=== PATIENT | female | born 1935 | race Caucasian/White ===

== ENCOUNTER 2019-01-03 12:12 | Emergency (ER) | payer OTHER ==
[~2019-01-03] VITALS: Ht 162.6 cm; Wt 55.3 kg
[2019-01-03] MEDS ORDERED: LOSARTAN POTAS100 MG PO (12:30)
[2019-01-03 12:41] LABS: EOSINOPHILS 3.7 % (0.0-3.0); HEMATOCRIT 34.7 % (37.0-47.0); HEMOGLOBIN 11.6 gm/dL (12.0-15.0); LYMPHOCYTES 16.7 % (24.0-44.0); MCH 30.7 pg (26.0-34.0); MCHC 33.4 g/dL (28.0-37.0); MONOCYTES 5.1 % (1.0-8.0); PLATELET COUNT 375 thou/uL (150-400); POLYS 73.5 % (36.0-66.0); RBC 3.77 mil/uL (4.20-5.00); RDW 13.9 % (10.5-14.5); WBC 8.2 thou/uL (4.0-11.0)
[2019-01-03 12:55] LABS: ANION GAP 9 mmol/L (7-16); BUN 32 mg/dL (7-18); CALCIUM 9.1 mg/dL (8.5-10.1); CHLORIDE 105 mmol/L (98-107); CO2 27 mmol/L (21-32); CREATININE 1.5 mg/dL (0.6-1.0); GLUCOSE 99 mg/dL (74-106); POTASSIUM 4.3 mmol/L (3.5-5.1); SODIUM 141 mmol/L (136-145)
[2019-01-03 13:04] LABS: ALBUMIN 3.4 g/dL (3.4-5.0); SGOT 33 U/L (15-37); SGPT 71 U/L (30-65); TOTAL BILIRUBIN 0.3 mg/dL (<0.1-1.0); TOTAL PROTEIN 7.3 g/dL (6.4-8.2); TROPONIN-I <0.06 ng/mL (<0.06)
[2019-01-03 14:02] VITALS: BP 114/64
[2019-01-03 17:30] VITALS: BP 93/52
--- NOTE | 2019-01-05 07:52 | EKG ---
[place] [address] [employer] [facility] [place] [address] ELECTROCARDIOGRAM REPORT Name: JAYDEN CAMPUZANO Room #: DEP YARI Rodriguez#: [id number] Admission: 01/03/19 Attend Phys: Discharge: 01/03/19 Date of : 34 Report #: [id number] THIS REPORT FOR: //name// [facility] ED Test Date: 2019-01-03 Test Time: 12:27:41 Pat Name: JAYDEN CAMPUZANO Department: Room: 170 Gender: F Senior Principal: SHERIE : 1935 Requested By: Jerry Esposito Order Number: [id number] MD: Kaveh Lange Measurements Intervals [place] Rate: 135 P: AR: QRS: -18 QRSD: 95 T: 9 QT: 308 QTc: 462 Interpretive Statements Atrial fibrillation Borderline left axis deviation Low voltage, precordial leads Consider anterior infarct No previous ECG available for comparison Electronically Signed On 01-05-2019 7:51:53 CDT by Kaveh Lange [email or web address] <ELECTRONICALLY SIGNED> By: Kaveh Lange MD 01/05/19 0751 1227 1227 MD HUANG Davis
== END 2019-01-03 17:30 | disposition home or self-care (01) ==
LOC: ER 12:12 → EROBS 13:47 → ER 17:30
PROVIDERS: Emergency Medicine
DX: I48.2 Chronic atrial fibrillation (principal); I10 Essential (primary) hypertension; K21.9 Gastro-esophageal reflux disease without esophagitis; E03.9 Hypothyroidism, unspecified; Z88.0 Allergy status to penicillin

== ENCOUNTER 2019-01-12 03:00 | Inpatient (IN) | payer OTHER ==
[2019-01-12] VITALS (16 sets, daily range): BP systolic 81–138; BP diastolic 44–112
[~2019-01-12] VITALS: Ht 152.4 cm; Wt 55.3 kg
--- NOTE | ~2019-01-12 | EMS ---
[facility] [address] [place] [address] EMS Patient Care Report Name: JAYDEN CAMPUZANO Room #: 170-6 ADM IN M.R.#: [id number] Admission: 01/12/19 Attend Phys: Meron Martinez Discharge: Date of : 34 Report #: [id number] THIS REPORT FOR: //name// Report Transmitted: 01/12/2019 06:20 EMS Care Summary [facility] Incident [id number] @ 01/12/2019 02:07 Incident Location [address] [place] [address] Patient JAYDEN CAMPUZANO Female, 83 Years 1935 Patient Address [address] [place] [address] Patient Allergies No known allergies, Chief Complaint Dyspnea Disposition Transported No Lights/[place] Dispatch Reason Breathing Problem Transported To [facility] Narrative Arrived on scene to find pt laying L lateral recumbent on her bed. Upon arrival pt was awake and alert. Pt stated she was washing her hands in the bathroom when she became light headed and fell into a wall and sat on the floor. Pt denied any head or neck pain, and denied any actual LOC. Daughter stated that she called 911 because following that episode the pt was having difficulty breathing stating she was unable to catch her breath. Upon initial examination pt stated her breathing was doing better, but she had abdominal pain and lower back pain that had lasted a few days. Pt ambulated with assistance to the stretcher. Once seated on the stretcher pt was secured via seat belts. Once in [facility] [address] [place] [address] EMS Patient Care Report Name: JAYDEN CAMPUZANO Room #: 170-6 ADM IN .R.#: [id number] Admission: 01/12/19 Attend Phys: Meron Martinez Discharge: Date of : 34 Report #: [id number] the ambulance pt was placed on 15L O2 via NRB due to a reemergence of dyspnea, pt's vitals were assessed (see previous annotations), a 12 lead ECG was captured (aFib with ectopy), a 20 G IV was successfully placed in pt's R forearm (patency ensured via NS, secured), and transport was initiated. Pt was monitored for the duration of transport, prior to arrival at ED O2 was removed from pt due to cessation of dyspnea. Difference in blood pressure readings was unable to be verified as ambient noise made manual interpenetration of BP difficult, and weak radial pulse hindered palp BP. repeated efforts to assess with autocuff resulted in time outs. Upon arrival at destination facility pt was transferred from stretcher to hospital bed via sheet draw, pt care report was given to facility staff, and pt care was turned over. All times are estimations. EMTP [id number]. Initial Vitals @02:24P: 59,SpO2: 97, @02:42P: 51,BP: 87/47,SpO2: 99, @02:36P: 85,R: 24,BP: 137/118,Pain: 6/10,GCS: 15,Glucose: 247,SpO2: 99,Revised Trauma: 12, Assessments @02:14MENTAL:Person Oriented,Time Oriented,Place Oriented,Event Oriented,SKIN:HEENT:Head/Face: No Abnormalities,Neck/Airway: No Abnormalities,LUNG SOUNDS:General: Nausea,Left Upper: Tenderness,Right Lower: Tenderness,Right Upper: Tenderness,Left Lower: Tenderness,ABDOMEN:General: Nausea,Left Upper: Tenderness,Right Lower: Tenderness,Right Upper: Tenderness,Left Lower: Tenderness,PELVIS//GI:EXTREMITIES:Left Arm: No Abnormalities,Right Arm: No Abnormalities,Left Leg: No Abnormalities,Right Leg: No Abnormalities,PULSE:NEURO:No Abnormalities,@02:50MENTAL:Person Oriented,Place Oriented,Time Oriented,Event Oriented,SKIN:HEENT:LUNG SOUNDS:ABDOMEN:PELVIS//GI:EXTREMITIES:PULSE:NEURO: Impression Acute Respiratory Distress (Dyspnea) Procedures @03:15Saline Lock 10cc (20 ga) Site: [facility]-RightSucceeded Timeline 02:05,Call Received 02:05,Psap Call 02:07,Dispatched 02:09,En Route 02:12,Initial Responder On Scene 02:12,On Scene 02:14,At Patient 02:24,BP: / M,PULSE: 59,RR: R,SPO2: 97 Ox,ETCO2: ,BG: ,PAIN: ,GCS: , [address] [address] EMS Patient Care Report Name: JAYDEN CAMPUZANO Room #: 170-6 ADM IN M.R.#: [id number] Admission: 01/12/19 Attend Phys: Meron Martinez Discharge: Date of : 34 Report #: [id number] 02:35,Depart Scene 02:36,BP: 137/118 M,PULSE: 85,RR: 24 R,SPO2: 99 Ox,ETCO2: ,B,PAIN: 6,GCS: 15, 02:42,BP: 87/47 M,PULSE: 51,RR: R,SPO2: 99 Ox,ETCO2: ,BG: ,PAIN: ,GCS: , 02:56,At Destination 03:15,Saline Lock 10cc 20 ga Site: Forearm-Right,Succeeded, 03:27,Call Closed Disclaimer v1.1 Copyright 2019 [employer] This EMS Care Summary contains data elements from the applicable legal record (which may be displayed differently). It is designed to provide pertinent information for the following purposes: continuity of care, clinical quality, and state data reporting. The complete legal record is available to ED staff and administrators of the receiving hospital in [employer] Patient Tracker. All data is provided "as is."
[~2019-01-12 03:00] MED LIST: LOSARTAN POTAS100 MG PO
[2019-01-12] MEDS ORDERED: DILTIAZEM ER180 MG PO (03:13)
[2019-01-12] MEDS ORDERED: METOPROLOL SUC100 MG PO (03:14)
[2019-01-12] MEDS ORDERED: ZANTAC 150MG T150 MG PO (03:15)
[2019-01-12] MEDS ORDERED: XARELTO15 MG PO (03:15)
[2019-01-12] MEDS ORDERED: TRAZODONE HCL50 MG PO (03:16)
[2019-01-12] MEDS ORDERED: IRBESARTAN-HCT1 EACH PO (03:16)
[2019-01-12 03:30] LABS: ABSOLUTE NEUTROPHILS 4.6 thou/uL (1.4-8.2); BASOPHILS 1.2 % (0.0-2.0); EOSINOPHILS 3.9 % (0.0-3.0); HEMOGLOBIN 9.6 gm/dL (12.0-15.0); MCH 30.2 pg (26.0-34.0); MCHC 32.1 g/dL (28.0-37.0); MCV 94.2 fL (80.0-100.0); MONOCYTES 3.7 % (1.0-8.0); PLATELET COUNT 238 thou/uL (150-400); POLYS 76.2 % (36.0-66.0); RBC 3.19 mil/uL (4.20-5.00); RDW 14.6 % (10.5-14.5)
[2019-01-12 03:33] LABS: CALCIUM 8.7 mg/dL (8.5-10.1); CREATININE 1.8 mg/dL (0.6-1.0); POTASSIUM 3.7 mmol/L (3.5-5.1)
[2019-01-12 03:39] LABS: ALBUMIN 2.9 g/dL (3.4-5.0); DIRECT BILIRUBIN 0.2 mg/dL (<0.1-0.3); TOTAL BILIRUBIN 0.4 mg/dL (<0.1-1.0); TOTAL PROTEIN 5.9 g/dL (6.4-8.2)
[2019-01-12 09:19] LABS: FIBRINOGEN 238.9 mg/dL (210-360); INR 1.5; PROTIME 15.5 Seconds (9.3-11.4)
--- NOTE | 2019-01-12 10:43 | NUR ---
VASCULAR ACCESS TEAM CONSULTED FOR PICC LINE IN ER.PT'S LABS,MEDS,HISTORY,ORDER AND CONSENT VERIFIED. DISCUSSED BENEFITS AND RISK OF PICC WITH PT,VERBALIZED UNDERSTANDING. BERNARD GOLDEN WAS WIDELY PATENT WITH USG, 5FR TL PICC TRIMMED TO 47CM INSERTED PER HOSPITAL P&P, TO 3CM EXTERNAL. PT TOLERATED WELL. STAT CXR ORDERED.
--- NOTE | 2019-01-12 10:45 | NUR ---
EVAN [phone] DAUGHTER'S #
--- NOTE | 2019-01-12 12:11 | NUR ---
CXR TOO DEEP PICC WITHDREW TOTAL 7CM 2ND CXR OBTAINED, CONTINUES TO BE DEEP WITHDREW ADDITIONAL 2CM 3RD CXR ORDERED
--- NOTE | 2019-01-12 13:02 | NUR ---
CXR CONFIRMED PICC IN GOOD POSITION, RELEASED FOR IMMEDIATE USE PER PROTOCOL TO BOB JAEGER IN ICU
--- NOTE | 2019-01-12 19:33 | NUR ---
ADMITTED FROM ER TO ROOM 246. AFIB ON MONITOR. AWAKE AND ALERT. NO COMPLAINTS OF PAIN, NAUSEA OR DISCOMFORT. BP WNL. POSSIBLE CHOLYSYSTECTOMY THIS ADMISSION. NPO FOR NOW.
[2019-01-13] VITALS (31 sets, daily range): BP systolic 95–145; BP diastolic 28–101
[2019-01-13 00:07] LABS: GLYCOHEMOGLOBIN (HGB A1C) 5.6 % (4.8-5.6)
[2019-01-13 05:47] LABS: CALCIUM 7.9 mg/dL (8.5-10.1); CREATININE 1.7 mg/dL (0.6-1.0); POTASSIUM 4.2 mmol/L (3.5-5.1); TOTAL BILIRUBIN 0.5 mg/dL (<0.1-1.0); TOTAL PROTEIN 6.1 g/dL (6.4-8.2)
[2019-01-13 05:55] LABS: BASOPHILS 0.2 % (0.0-2.0); HEMATOCRIT 30.9 % (37.0-47.0); HEMOGLOBIN 9.8 gm/dL (12.0-15.0); LYMPHOCYTES 4.5 % (24.0-44.0); MCH 29.7 pg (26.0-34.0); MCHC 31.7 g/dL (28.0-37.0); MCV 93.8 fL (80.0-100.0); MONOCYTES 2.8 % (1.0-8.0); PLATELET COUNT 219 thou/uL (150-400); POLYS 92.5 % (36.0-66.0); RBC 3.29 mil/uL (4.20-5.00); RDW 15.2 % (10.5-14.5); WBC 8.6 thou/uL (4.0-11.0)
[2019-01-13 10:55] LABS: HEMOGLOBIN 9.8 gm/dL (12.0-15.0); MCH 30.6 pg (26.0-34.0); MCHC 32.8 g/dL (28.0-37.0); MCV 93.3 fL (80.0-100.0); RBC 3.22 mil/uL (4.20-5.00); WBC 9.5 thou/uL (4.0-11.0)
[2019-01-13 11:09] LABS: INR 1.2; PROTIME 12.6 Seconds (9.3-11.4)
--- NOTE | 2019-01-13 12:49 | EKG ---
[address] [place] [address] ELECTROCARDIOGRAM REPORT Name: JAYDEN CAMPUZANO Room #: 246-P ADM IN M.R.#: [id number] Admission: 01/12/19 Attend Phys: Meron Martinez Discharge: Date of : 34 Report #: [id number] THIS REPORT FOR: //name// [facility] ED Test Date: 2019-01-12 Test Time: 03:08:58 Pat Name: JAYDEN CAMPUZANO Department: Room: 246 Gender: F Weaving Instructor: MERLE : 1935 Requested By: Toya Haro Order Number: [id number] MD: Kaveh Lagne Measurements Intervals [place] Rate: 53 P: TN: QRS: 113 QRSD: 111 T: -30 QT: 467 QTc: 439 Interpretive Statements Atrial fibrillation Paired ventricular premature complexes Right axis deviation Low voltage, precordial leads Borderline repolarization abnormality Compared to ECG 01/03/2019 12:27:41 Ventricular premature complex(es) now present Right-axis deviation now present Myocardial infarct finding no longer present Electronically Signed On 01-13-2019 12:48:59 CDT by Kaveh Lange [email or web address] <ELECTRONICALLY SIGNED> By: Kaveh Lange MD 01/13/19 1248 0308 0308 Kaveh Lange MD /EPI
--- NOTE | 2019-01-13 16:19 | NUR ---
Case opened to follow for dc planning. Pt is currently in ICU with abd pain and hypotension. GI workup in progress. No surgical plans at this time. Pipida scan today and EGD tomorrow. Dtr Geri here at bedside. Pt lives at home with one step to enter and 5 up to her bedroom and bath. Her dtr Gisselle lives with her and works nights. Geri is her point of contact for emergencies and decision making. The pt is normally indep with gait and adl's. She does not drive and relies on family for transport to appts and errands. She is a&ox4 and very [place]. She states that she has to read lips as she does not hear well. She has not dme or hh history. Family is very supportive and involved. Pt's son came in to visit as well this afternoon. CM role introduced. Will follow along and ask for therapy evals.
[2019-01-14] VITALS (24 sets, daily range): BP systolic 104–150; BP diastolic 40–93
--- NOTE | 2019-01-14 03:41 | NUR ---
RECEIVED PT'S CARE AT 1900; PT. SLEEPING; SLEEP INTERRUMPTED DURING SHIFT CHANGE; ALERT; DURING ASSESMENT ALERT TO PERSON, PLACE & SITUATION; FORGETFUL; C/O PAIN OVER ABDOMEN WHEN COUGHING; SUGGESTED PRN ACETAMINOPHEN; REFUSED; HS MEDICATION GIVEN; FROM TIME TO TIME FORGETS PLACE & SITUATION; LATE ON THE NIGHT; PT. CONFUSED; ALERT TO PERSON; ST. SEVERAL TIMES "I NEED TO PEE"; TRIED TO GET UP FROM BED; REMAINED DURÁN ON PLACE; ST. UNDERSTANDING; AROUND 0200 PT. REQUESTED TO USE THE "BATHROOM" BECAUSE NEEDS TO POOP; BED STONE PROVIDED; NO ABLE TO HAVE A BM; ASSIST WITH BED BAD; ABLE TO REST WITH EYES CLOSED AFTER MIDNIGHT; O2 APPLIED AT 0100 DUE TO 02 SAT ON 88-89%; ASSESSMENT CHARGED; FOLLOWING POC; MONITORING; WILL PASS ON REPORT.
[2019-01-14 06:19] LABS: ABSOLUTE NEUTROPHILS 9.4 thou/uL (1.4-8.2); BASOPHILS 0.1 % (0.0-2.0); HEMATOCRIT 29.8 % (37.0-47.0); HEMOGLOBIN 9.7 gm/dL (12.0-15.0); MCH 30.5 pg (26.0-34.0); MCHC 32.5 g/dL (28.0-37.0); MCV 93.9 fL (80.0-100.0); MONOCYTES 4.4 % (1.0-8.0); PLATELET COUNT 257 thou/uL (150-400); POLYS 91.5 % (36.0-66.0); RBC 3.17 mil/uL (4.20-5.00); RDW 15.6 % (10.5-14.5); WBC 10.3 thou/uL (4.0-11.0)
[2019-01-14 06:44] LABS: ALBUMIN 2.9 g/dL (3.4-5.0); CALCIUM 7.7 mg/dL (8.5-10.1); CREATININE 1.7 mg/dL (0.6-1.0); MAGNESIUM 1.6 mg/dL (1.8-2.4); POTASSIUM 4.1 mmol/L (3.5-5.1); TOTAL BILIRUBIN 0.2 mg/dL (<0.1-1.0)
[2019-01-14 06:59] LABS: URINE BLOOD 3+ (Negative); URINE GLUCOSE-RANDOM* NEGATIVE (Negative); URINE KETONES NEGATIVE (Negative); URINE NITRITE-REFLEX NEGATIVE (Negative); URINE PROTEIN (DIPSTICK) 2+ (Negative); URINE SPECIFIC GRAVITY 1.025 (1.005-1.035); URINE UROBILINOGEN 0.2 E.U./dl (0.2-1.0)
[2019-01-14 07:01] LABS: URINE LEUKOCYTES-REFLEX 1+ (Negative)
[2019-01-14 07:02] LABS: URINE CLARITY SL HAZY; URINE COLOR LT RED
[2019-01-14 07:05] LABS: ICTOTEST (BILI CONFIRMATORY) Negative (Negative); URINE BILIRUBIN NEGATIVE (Negative)
[2019-01-14 08:15] LABS: CASTS None Seen /LPF (None Seen); SQUAMOUS None Seen /LPF (0-3); URINE RBC >20 Many /HPF (0-2); URINE WBC-REFLEX 0-5 Rare /HPF (0-5)
[2019-01-14 08:16] LABS: BACTERIA-REFLEX None Seen /HPF (None Seen); CRYSTALS None Seen /LPF (None Seen)
--- NOTE | 2019-01-14 10:54 | NUR ---
EGD CANCELLED TODAY, WILL TRANSFER TO AND POSSIBLY GO HOME TOMORROW. HEPARIN AND CARDIZEM DRIP STOPPED AND STARTED BACK ON HOME PO MEDS.
--- NOTE | 2019-01-14 14:21 | NUR ---
REPORT GIVEN TO HEIDE [place]. TRANSPORTED TO ROOM 351 VIA WHEELCHAIR ON PORTABLE MONITOR. AFIB ON MONITOR IN LOW 100'S. NO C/O PAIN OR NAUSEA. VSS
--- NOTE | 2019-01-14 15:06 | HC ---
[facility] [address] [address] CONSULTATION Name: JAYDEN CAMPUZANO Room #: 351-P ADM IN M.R.#: [id number] Admission: 01/12/19 Attend Phys: Meron Martinez Discharge: Date of : 34 Report #: [id number] THIS REPORT FOR: //name// CC: Marcelina Ibanez DATE OF SERVICE: 01/12/2019 INFECTIOUS DISEASE CONSULTATION. REASON FOR CONSULTATION: I was asked to evaluate concerning septic shock. HISTORY OF PRESENT ILLNESS: The patient is an 83-year-old who presented with abdominal pain, right upper quadrant for the last several days. She does not recall what exactly happened at home prior to her arrival. She felt like she passed out in her bathroom. She lives with her daughter who brought her in to the Emergency Room. She has had no nausea, vomiting or diarrhea. Has noted some right upper quadrant discomfort for the past several days. Denied any cough or sputum production. No dysuria or frequency. No hematuria or blood in her stool. She has had no rashes. She has had no adenopathy. She does have atrial fibrillation with rapid ventricular response, which was treated 1 month ago at [facility]. She has had no chest pain or palpitations. Denies hurting herself in the bathroom prior to her arrival. Since admission, she has been hypotensive, given IV fluids and vasopressors. She now has left upper extremity PICC in place. Chest x-ray shows evidence of the catheter in the right atrium. No evidence of pneumonia on imaging. She had a CT scan, which showed fluid and thickening within the gallbladder wall, diverticulosis and congestive heart failure. Ultrasound of the abdomen showed gallbladder wall thickening consistent with cholecystitis. There were no stones or evidence of common bile duct obstruction. REVIEW OF SYSTEMS: Ten-point review was negative other than what is described above. ALLERGIES: PENICILLIN, reaction not known. MEDICATIONS: Included Diltiazem, metoprolol, Xarelto, Zantac, irbesartan, hydrochlorothiazide and trazodone. PAST MEDICAL HISTORY: Hearing impairment, left eye blind, glaucoma, atrial fibrillation, hypothyroidism. FAMILY HISTORY: Noncontributory. [address] [address] CONSULTATION Name: JAYDEN CAMPUZANO Room #: 351-P [facility] IN M.R.#: [id number] Admission: 01/12/19 Attend Phys: Meron Martinez Discharge: Date of : 34 Report #: [id number] SOCIAL HISTORY: Nonsmoker, no significant alcohol intake. PHYSICAL EXAMINATION: VITAL SIGNS: She was afebrile, blood pressure 110/65 with a heart rate of 72. This is up from blood pressure 75/49 earlier today. She is on oxygen 2 liters per nasal cannula. SKIN: Without rash or decubitus. No palpable adenopathy. HEENT: Eyes, without scleral icterus. Mouth without mucositis. She does have upper dentures. NECK: Supple. LUNGS: Clear anteriorly with few crackles in the left base posteriorly. HEART: Regular, without murmur, gallop or rub. ABDOMEN: Mildly distended. Very mild tenderness in the right upper quadrant. No appreciable mass or hepatosplenomegaly. No CVA tenderness. GENITOURINARY: External genitalia without mass or lesion. RECTAL: Not performed. EXTREMITIES: Without clubbing, cyanosis or edema. NEUROLOGIC: Cranial nerves intact. Strength in upper and lower extremities was normal. Mood normal without anxiety or depression. Although she was a poor historian, she was conversant. She was hard of hearing. LABORATORY STUDIES: Hemoglobin 9.6, WBC 6, 76% segs, 15% lymphs, platelet count 238,000. Sodium 142, potassium 3.7, bicarbonate 22, creatinine 1.8, ALT 156, AST 140, alkaline phosphatase 132, bilirubin 0.4, lactate 4.6. CT scan and ultrasound as noted above. Blood cultures are pending. IMPRESSION: An 83-year-old with septic shock, now receiving IV fluids and on taper vasopressors as necessary. Source of infection, I am suspecting is gallbladder, most likely. I have not seen urinalysis report yet and chest x-ray showed no evidence of infiltrate. RECOMMENDATIONS: We will continue with antibiotic coverage including merrem. Await culture results, urine studies. Would have General Surgery evaluate for cholecystectomy. <ELECTRONICALLY SIGNED> By: Steven Murillo MD 01/14/19 1506 1247 0310 Steven Murillo MD /nt
--- NOTE | 2019-01-14 15:28 | NUR ---
MICHAELA reviewed chart and spoke with nursing and attending physician. Pt transferred to 3W from ICU. DIscharge home over the weekend is anticipated. MICHAELA spoke with pt's dtr, Geri, via phone to provide update and disuss discharge plan. Recommendation made for pt to have HH services. MICHAELA provided options for HH agencies. No preference voiced. MICHAELA confirmed pt's address in [place] where she lives with her dtr, Gisselle. Pt's PCP is Dr. Marcelina Kimble at the [facility] in [place]. management planner to fax referral to [facility]. Final discharge orders and summary will need to be faxed to [facility] when available. Pt's family will provide transportation home. MICHAELA is following to assist as needed with discharge planning. [facility]--
--- NOTE | 2019-01-14 15:39 | NUR ---
Discharge planning. Anticipated discharge to home over the weekend with home health services. Referral faxed to [facility], [facility] for hh needs. Call placed to [facility], referral received and accepting of patient. Please fax final discharge orders and discharge summary to [facility] once completed per attending. [facility] Fax Number is [phone] Contact number is [phone]. Thank you.
--- NOTE | 2019-01-14 18:57 | NUR ---
ASSUMED CARE OF PATIENT APPROX 1310. PT A&OX2, VSS, DENIES PAIN AND SOA. PATIENT HAS HX OF EYE DISEASE, PATIENT HAS BLURRED VISION. PATIENT IS HAVING VISUAL HALLUCINATIONS. SHE IS STATING SHE IS SEEING FLASH LIGHT ON THE FLOOR, ORANGE DOTS FLOATING. PATIENT WAS WITNESSED BY DAUGHTER TALKING TO SOMEONE AND NO ONE IN THE ROOM. PATIENT IS HARD TO REORIENT THE DAY GETS LATER. PATIENT DAUGHTER STATES SHE HAS NOT SLEPT IN TWO DAY. PATIENT HAS AFIB HX AND RIGHT RADIAL PULSE 2+ REG RHTHYM, LEFT RADIAL PULSE 1+ AND IRREGULAR RHYTHM. PATIENTS HEART RATE HAS BEEN STABLE IN THE 90S AND BELOW. NO SIGNS OF DISTRESS. O2 SATS HIGH 96%. DOCTOR PAGED TWICE AND UNABLE TO GET A HOLD OF DOCTOR. PATIENT IS OTHERWISE STABLE. WILL CONTINUE TO MONITOR AND PASS INFORMATION TO ONCOMING NURSE.
[2019-01-15 03:52] VITALS: BP 98/62
--- NOTE | 2019-01-15 05:41 | NUR ---
PROGRESS PT CONFUSED AND REPORTS VISUAL HALLUCINATIONS, SEEING AND TALKING TO PEOPLE WHO ARE NOT THERE. REORIENTED PT EASILY BUT SHE FORGETS SOON AFTER AND BECOMES IMPULSIVE TRIES TO GET UP INDEPENDENTLY GAIT UNSTEADY AND JUDGEMENT LACKING TRIED TO SIT 10 FEET BEFORE THE COMMODE. PT HAS PICC LINE TO BERNARD 3 LUMENS ALL WITH GOOD BLOOD RETURN AND FLUSHING WITHOUT DIFFICULTY. TELEMETRY INTACT READING AFIB HAD DIFFICULTY AT START OF SHIFT WITH INTERFERENCE AND KEEPING PADS IN PLACE NOW TELE WITHOUT DISTURBANCE AND WAVEFORM CLEARER 1 5MG HYDROCODONE GIVEN THIS AM FOR COMFORT PT STATED HE RIGHT SIDE HURTS AND SHE CAN'T SLEEP BANGING CALL LIGHT ON BEDRAIL AND YELLING OUT SETTLED DOWN AFTER MEDICATION. O2 AT 2 LITERS SATS IN MID 90'S VSS CONTINUE POC.
[2019-01-15 05:50] LABS: HEMATOCRIT 31.1 % (37.0-47.0); HEMOGLOBIN 9.8 gm/dL (12.0-15.0); MCH 29.9 pg (26.0-34.0); MCHC 31.5 g/dL (28.0-37.0); MCV 95.1 fL (80.0-100.0); RBC 3.27 mil/uL (4.20-5.00); RDW 15.5 % (10.5-14.5); WBC 12.5 thou/uL (4.0-11.0)
[2019-01-15 06:10] LABS: ALBUMIN 2.8 g/dL (3.4-5.0); CALCIUM 7.8 mg/dL (8.5-10.1); CREATININE 2.2 mg/dL (0.6-1.0); PHOSPHORUS 3.6 mg/dL (2.5-4.9); POTASSIUM 4.4 mmol/L (3.5-5.1)
[2019-01-15 07:12] VITALS: BP 100/57
--- NOTE | 2019-01-15 10:14 | NUR ---
Pt was awake and alert x 2 but pt saw somethings what this nurse did not see at bedside. Pt was wheezing and coarse LS. CX-ray was ordered by ID doctor. Prudencio.fib on monitor w/ 50s of HR. Metoprolol 50mg was held and notified Dr. Martinez. No edema is present. No C/O pain. Pt could not swallow capsule. Notified Dr. Martinez. changed pt's diet to pureed diet. BS 114. Will continue to monitor
[2019-01-15 11:05] VITALS: BP 128/66
[2019-01-15 15:05] VITALS: BP 137/68
[2019-01-15 19:06] VITALS: BP 134/70
[2019-01-16 04:12] VITALS: BP 135/70
--- NOTE | 2019-01-16 07:00 | NUR ---
Pt awake off and on through the night with c/o of abdominal discomfort. PRN fentanyl given with desired effect achieved. VS stable and SpO2 adequate on 2L of O2. Am lab results pending, continue with POC.
[2019-01-16 07:20] LABS: HEMATOCRIT 30.5 % (37.0-47.0); MCH 30.3 pg (26.0-34.0); MCHC 32.6 g/dL (28.0-37.0); RBC 3.29 mil/uL (4.20-5.00); RDW 14.8 % (10.5-14.5); WBC 10.6 thou/uL (4.0-11.0)
[2019-01-16 07:32] LABS: ALBUMIN 3.2 g/dL (3.4-5.0); CALCIUM 8.3 mg/dL (8.5-10.1); CREATININE 1.7 mg/dL (0.6-1.0); PHOSPHORUS 2.5 mg/dL (2.5-4.9); POTASSIUM 3.8 mmol/L (3.5-5.1)
[2019-01-16 07:34] VITALS: BP 155/88
[2019-01-16 11:48] VITALS: BP 148/57
[2019-01-16 15:45] VITALS: BP 149/107
--- NOTE | 2019-01-16 18:43 | NUR ---
PT AOX4 THIS MORNING, COULD ANSWER ORIENTATION QUESTIONS CORRECTLY, BUT WOULD SAY RANDOM THINGS AND GO OFF ON TANGENTS. PT RECEIVED IV LASIX EARLIER TODAY, UP TO COMMODE NUMEROUS TIMES TODAY, FAMILY ASSISTED PT THEY WERE IN ROOM AND SHE JUMPS UP VERY QUICKLY. FAMILY EDUCATED ABOUT FALL PREVENTION AND PROMISE TO INFORM NURSING BEFORE THEY LEAVE. PT MORE AND MORE CONFUSED, RESTLESS AND IMPULSIVE DAY CONTINUED. SPOKE WITH EARLIER AND HAD DILTIAZEM CHANGED FROM LONG ACTING TO SHORT ACTING D/T PILLS NEEDING TO BE CRUSHED. PRN METOPROLOL GIVEN SEVERAL TIMES TODAY. PT AFIB, HEART RATE STILL JUMPED UP IN 160S WITH ANY ACTIVITY DESPITE MEDICATIONS. PT BECOMES VERY SOB AFTER ACTIVITY, SPO2 98% ON RA.
[2019-01-16 19:18] VITALS: BP 118/71
[2019-01-16 23:45] VITALS: BP 146/79
[2019-01-17 03:58] VITALS: BP 154/74
--- NOTE | 2019-01-17 05:52 | NUR ---
Pt. able to answer orientation questions though she gets so forgetful and gets confused. She has been reoriented. Bed alarm for safety. A fib with HR in the 90's and 100's with activity. Scheduled diltiazem given to pt. Tolerating room air well with no respiratory distress.Up with assist to BSC x1. Pain med given at HS for chronic back pain with good relief. She slept fair during the night with occasional periods of crying stating she misses her mother,brother and sister. Up in the recliner chair at this time per her request. Making progress towards care plan goals.
[2019-01-17 07:03] LABS: CALCIUM 9.2 mg/dL (8.5-10.1); CREATININE 1.4 mg/dL (0.6-1.0); POTASSIUM 3.2 mmol/L (3.5-5.1)
[2019-01-17] MEDS ORDERED: LOPRESSOR50 PO (09:20)
[2019-01-17] MEDS ORDERED: DEMADEX20 MG PO (09:21)
[2019-01-17] MEDS ORDERED: K-DUR 20 MEQ T20 MEQ PO (09:21)
[2019-01-17] MEDS ORDERED: CEFUROXIME250 MG PO (09:26)
--- NOTE | 2019-01-17 09:30 | NUR ---
PT GIVEN IV METOPROLOL FOR HR>120. HR WAS 130 SUSTAINED WHEN MEDICATION GIVEN. PT HR RESPONDED AND IS NOW 108. WILL CONTINUE TO MONITOR PT.
[2019-01-17 10:09] VITALS: BP 149/82
--- NOTE | 2019-01-17 10:30 | NUR ---
DISCHARGE NOTE: SW reviewed chart and spoke with nursing. Pt is medically stable for discharge home today with HH services. Discharge orders/summary completed. SW faxed to [facility] and notified liaison of discharge. [facility] liaison to try to see pt prior to discharge. MICHAELA met with pt and dtr, Geri, at bedside to discuss dishcarge plan. Both are aware and agreeable with discharge plan. Contact info for [facility] placed in pt's discharge summary. ST to see pt prior to discharge. No additional SW needs identified at this time, but is available to assist should needs arise.
[2019-01-17 12:32] VITALS: BP 133/75
[2019-01-17 12:58] VITALS: BP 149/82
--- NOTE | 2019-01-17 13:45 | NUR ---
PT'S PICC LINE REMOVED. SITE C,D,I, NO BLEEDING, NO HEMATOMA PRESENT. PRESSURE APPLIED FOR 5 MIN. AND THEN GAUZE DRESSING PLACED. PT DENIES ANY PAIN AT THIS TIME. PT'S DAUGHTER GAVE NEW PRESCRIPTIONS WELL D/C PAPERWORK. DAUGHTER STATES NO QUESTIONS AT THIS TIME. PT FITTED AND DELIVERED WALKER, LAND SALES AGENT SET UP HOME HEALTH AND PT'S DAUGHTER GIVEN HH CONTACT INFORMATION. GUN STOCK MAKER REMOVED AND PT DRESSED WITH HELP OF HER DAUGHTER.
--- NOTE | 2019-01-17 14:25 | HC ---
[facility] [address] [address] CONSULTATION Name: JAYDEN CAMPUZANO Room #: 351-P [facility] IN M.R.#: [id number] Admission: 01/12/19 Attend Phys: Meron Martinez Discharge: 01/17/19 Date of : 33 Report #: [id number] THIS REPORT FOR: //name// CC: Marcelina Ibanez DATE OF SERVICE: 01/13/2019 ICU ID NOTE Meropenem day #2. HISTORY OF PRESENT ILLNESS: Afebrile with improvement in her hemodynamics. Oxygen requirements now are off. She was down getting her hepatobiliary scan. Her abdominal discomfort has resolved. There has been no increased cough or sputum production. No nausea, vomiting or diarrhea. LABORATORY STUDIES: Reviewed. Microbiology reports reviewed. Hepatobiliary scan reviewed with no evidence of acute cholecystitis by the study. IMPRESSION: 1. Septic shock, now improved. 2. Atrial fibrillation, controlled. 3. Hypertension, controlled. 4. Confusional state, improved. 5. Acute kidney injury, improved. 6. Anemia. PLAN: Will be to continue her IV antibiotic therapy pending culture results. GI service is planning an EGD in the morning. We will then determine her antibiotic therapy following these next test. <ELECTRONICALLY SIGNED> By: Steven Murillo MD 01/17/19 1425 2140 0558 Steven Murillo MD /charmaine
== END 2019-01-17 13:37 | disposition home health service (06) | DRG 871 ==
LOC: ER 03:00 → ICU 06:55 → EROBS 06:55 → ICU 11:46 → 3W 01-14 14:29 → ENTRNSPT 01-17 13:30 → EDTRNSPTSTS 01-17 13:33 → 3W 01-17 13:37
PROVIDERS: Emergency Medicine; Internal Medicine Pulmonary Disease; Nurse Practitioner; Pediatrics; ADMIT Hospitalist
DX: A41.9 Sepsis, unspecified organism (principal); R65.21 Severe sepsis with septic shock; J96.01 Acute respiratory failure with hypoxia; J69.0 Pneumonitis due to inhalation of food and vomit; G93.41 Metabolic encephalopathy; N17.9 Acute kidney failure, unspecified; E44.0 Moderate protein-calorie malnutrition; K81.0 Acute cholecystitis; E87.2 Acidosis; N18.9 Chronic kidney disease, unspecified; I48.91 Unspecified atrial fibrillation; R00.1 Bradycardia, unspecified; E03.9 Hypothyroidism, unspecified; I95.9 Hypotension, unspecified; K57.90 Diverticulosis of intestine, part unspecified, without perforation or abscess without bleeding; I50.9 Heart failure, unspecified; H54.62 Unqualified visual loss, left eye, normal vision right eye; D64.9 Anemia, unspecified; R79.89 Other specified abnormal findings of blood chemistry; R74.0 Nonspecific elevation of levels of transaminase and lactic acid dehydrogenase [LDH]; I13.10 Hypertensive heart and chronic kidney disease without heart failure, with stage 1 through stage 4 chronic kidney disease, or unspecified chronic kidney disease; K21.9 Gastro-esophageal reflux disease without esophagitis; F03.90 Unspecified dementia, unspecified severity, without behavioral disturbance, psychotic disturbance, mood disturbance, and anxiety; F41.9 Anxiety disorder, unspecified; Z66 Do not resuscitate; I08.3 Combined rheumatic disorders of mitral, aortic and tricuspid valves; Z79.01 Long term (current) use of anticoagulants; Z79.899 Other long term (current) drug therapy; Z88.0 Allergy status to penicillin; Z98.42 Cataract extraction status, left eye; Z98.41 Cataract extraction status, right eye; Z82.49 Family history of ischemic heart disease and other diseases of the circulatory system; Z23 Encounter for immunization
CPT/HCPCS: 10078; 10779; 10879; 27000

== ENCOUNTER → 2019-05-03 | Outpatient (CLI) | payer OTHER ==
[~2019-05-03] MED LIST changes: +CEFUROXIME250 MG PO; +DEMADEX20 MG PO; +DILTIAZEM ER180 MG PO; +IRBESARTAN-HCT1 EACH PO; +K-DUR 20 MEQ T20 MEQ PO; +LOPRESSOR50 PO; +METOPROLOL SUC100 MG PO; +TRAZODONE HCL50 MG PO; +XARELTO15 MG PO; +ZANTAC 150MG T150 MG PO
== END ==
LOC: SJCVC 15:22
DX: I44.5 Left posterior fascicular block (principal); R94.31 Abnormal electrocardiogram [ECG] [EKG]; I48.91 Unspecified atrial fibrillation; I38 Endocarditis, valve unspecified; D68.59 Other primary thrombophilia; I12.9 Hypertensive chronic kidney disease with stage 1 through stage 4 chronic kidney disease, or unspecified chronic kidney disease; N18.3 Chronic kidney disease, stage 3 (moderate); D64.9 Anemia, unspecified; E78.5 Hyperlipidemia, unspecified; E03.9 Hypothyroidism, unspecified; Z79.899 Other long term (current) drug therapy